=== PATIENT | female | born 1945 | race Caucasian/White ===

== ENCOUNTER → 2018-09-24 06:30 | Outpatient (CLI) | payer MEDICARE, SELFPAY ==
--- NOTE | 2018-09-24 | DI.MRI.S_ITS ---
PROCEDURE: MR LUMBAR SPINE WO CON INDICATIONS: Low back pain TECHNIQUE: Noncontrast sagittal T1 spin echo and T2 fast echo, sagittal STIR, axial T1 and T2 fast spin echo through the lumbar spine. In cases with scoliosis, additional coronal T2 fast spin echo may be performed. COMPARISON: None. FINDINGS: Image quality: Excellent. Alignment and Curvature: Straightening of the normal lumbar lordosis. Trace anterolisthesis of L3 on L4 Bone Marrow: Marrow is of normal overall signal. No acute vertebral body compression fractures. Spinal Cord: Conus medullaris terminates at the L1 level. Visualized cord demonstrates normal signal and size. Paraspinous Soft Tissues: No paravertebral masses. L1-L2: Normal appearance. L2-L3: Mild dorsal epidural lipomatosis. No significant canal stenosis. Partial effacement of both lateral recesses with bilaterally symmetric appearance. Mild bilateral foraminal narrowing L3-L4: No canal or lateral recess narrowing. Moderate left foraminal stenosis with nerve root compression. Mild right foraminal stenosis. L4-L5: Posterior annular fissure and broad-based posterior disc bulge with bilateral facet arthropathy. No definite canal stenosis. Partial effacement of both lateral recesses with bilaterally symmetric appearance. Severe left foraminal stenosis with nerve root compression. Minimal right foraminal narrowing L5-S1: No significant central canal narrowing. Partial effacement of both lateral recesses with bilaterally symmetric appearance. Moderate right foraminal stenosis with nerve root compression. Moderate to severe left foraminal stenosis or nerve root compression IMPRESSION: Multilevel lumbar spondylosis without high grade canal stenosis. Severe left L4-L5 foraminal narrowing. Moderate to severe left and moderate right L5-S1 foraminal stenoses. Dictated by: Jaxson Mora M.D. on 09/24/2018 at 10:31 Approved by: Jaxson Mora M.D. on 09/24/2018 at 10:39
== END ==
PROVIDERS: Visit Provider Physical Medicine & Rehabilitation
DX: M54.5 Low back pain (principal); M47.816 Spondylosis without myelopathy or radiculopathy, lumbar region; M48.061 Spinal stenosis, lumbar region without neurogenic claudication; M48.07 Spinal stenosis, lumbosacral region
CPT/HCPCS: 72148

== ENCOUNTER → 2019-09-15 19:20 | Outpatient (ROUT) | payer MEDICARE, SELFPAY ==
[2019-09-15 20:25] LABS: Add Manual Diff / Slide Review NO; Basophils Absolute Auto 100 /uL (0-100); Basophils Percent Auto 0.7 % (0-2); Eosinophils Absolute Auto 300 /uL (0-450); Eosinophils Percent Auto 2.9 % (2-4); Hemoglobin 13.2 g/dL (12.0-16.0); Lymphocytes Absolute Auto 2100 /uL (1100-4500); Lymphocytes Percent Auto 20.9 % (25-40); Mean Corpuscular Hemoglobin 28.3 PG (26-34); Mean Corpuscular Volume 85.6 fL (80-100); Monocytes Absolute Auto 500 /uL (0-900); Monocytes Percent Auto 5.4 % (3-14); Neutrophils Absolute Auto 7000 /uL (1500-7000); Neutrophils Percent Auto 70.1 % (50-75); Platelet Count 279 X10^3/uL (150-400); Red Blood Cell Count 4.67 X10^6/uL (4.0-5.2)
[2019-09-15 20:33] LABS: Reticulocyte Count, Percent 1.3 % (1.06-2.63)
[2019-09-15 20:36] LABS: HEMOLYSIS < 15 (0-50); Iron 63 ug/dL (37-170)
[2019-09-15 20:37] LABS: Alanine Aminotransferase 15 IU/L (<35); Albumin 4.2 g/dL (3.5-5.0); Albumin Globulin Ratio 1.6 (1.0-2.8); Alkaline Phosphatase 110 U/L (38-126); Aspartate Aminotransferase 23 IU/L (14-36); BUN Creatinine Ratio 30.1 (6-22); Bilirubin Total 0.4 mg/dL (0.2-1.3); Blood Urea Nitrogen 22 mg/dL (7-17); Carbon Dioxide 24 mmol/L (22-32); Chloride 104 mmol/L (98-107); Cholesterol 184 mg/dL (140-199); Estimated Glomerular Filt Rate > 60.0 mL/min (>60); Globulin 2.7 g/dL (1.7-4.1); Glucose 108 mg/dL (80-110); HDL Cholesterol 45 mg/dL (40-60); HEMOLYSIS < 15 (0-50); Potassium 4.5 mmol/L (3.4-5.1); Sodium 136 mmol/L (137-145); Total Protein 6.9 g/dL (6.3-8.2); Triglycerides 411 mg/dL (35-150)
[2019-09-15 20:49] LABS: Percent Iron Saturation 16 % (15-50); Total Iron Binding Capacity 389 ug/dL (265-497); Transferrin 316 mg/dL (206-381)
[2019-09-15 20:54] LABS: Vitamin D 25 Hydroxy (D3) 30.5 ng/mL (30.0-100.0)
[2019-09-15 21:43] LABS: Free T4, Direct Thyroxine 0.49 ng/dL (0.78-2.19)
[2019-09-16 08:15] LABS: Vitamin B12 > 1000 pg/mL (239-931)
== END ==
PROVIDERS: Visit Provider Physician Assistant
DX: I10 Essential (primary) hypertension (principal); E78.2 Mixed hyperlipidemia; E03.9 Hypothyroidism, unspecified; R41.9 Unspecified symptoms and signs involving cognitive functions and awareness; M19.90 Unspecified osteoarthritis, unspecified site; E53.8 Deficiency of other specified B group vitamins; D50.9 Iron deficiency anemia, unspecified
CPT/HCPCS: 80053; 80061; 82306; 82607; 83540; 83550; 84439; 84443; 85025; 85045

== ENCOUNTER → 2019-11-04 15:19 | Outpatient (ROUT) | payer MEDICARE, SELFPAY ==
[2019-11-04 16:24] LABS: TSH w/ Reflex to FT4 0.25 uIU/mL (0.47-4.68)
[2019-11-04 18:49] LABS: Free T4, Direct Thyroxine 1.91 ng/dL (0.78-2.19)
== END ==
PROVIDERS: Visit Provider Physician Assistant
DX: E03.9 Hypothyroidism, unspecified (principal)
CPT/HCPCS: 84439; 84443

== ENCOUNTER → 2020-01-27 14:50 | Outpatient (ROUT) | payer MEDICARE, SELFPAY | PROVIDERS: Visit Provider Physician Assistant | DX: E03.9 Hypothyroidism, unspecified (principal) | CPT/HCPCS: 84443 ==

== ENCOUNTER → 2020-06-15 13:00 | Outpatient (CLI) | payer MEDICARE, SELFPAY ==
--- NOTE | 2020-06-15 | DI.RAD.S_ITS ---
PROCEDURE: XR CHEST 2V INDICATIONS: Short of breath TECHNIQUE: 2 views of the chest were acquired. COMPARISON: None. FINDINGS: Surgical changes and devices: None. Lungs and pleura: Lungs are clear. No pleural effusions or pneumothorax. Mediastinum: Mediastinal contours are normal. Heart size is normal. Bones and chest wall: No suspicious bony abnormalities. Soft tissues appear unremarkable. IMPRESSION: Normal for age, source of current shortness of breath symptoms is not seen. Dictated by: Eldon Mendoza M.D. on 06/15/2020 at 14:51 Approved by: Eldon Mendoza M.D. on 06/15/2020 at 14:51
[2020-06-15 15:11] LABS: Add Manual Diff / Slide Review NO; Basophils Absolute Auto 100 /uL (0-100); Basophils Percent Auto 0.8 % (0-2); Eosinophils Absolute Auto 200 /uL (0-450); Eosinophils Percent Auto 2.1 % (2-4); Hematocrit 39.3 % (36-46); Hemoglobin 13.2 g/dL (12.0-16.0); Lymphocytes Absolute Auto 1700 /uL (1100-4500); Lymphocytes Percent Auto 20.2 % (25-40); Mean Corpuscular HGB Conc 33.6 % (30-36); Mean Corpuscular Hemoglobin 28.4 PG (26-34); Mean Corpuscular Volume 84.5 fL (80-100); Monocytes Absolute Auto 400 /uL (0-900); Monocytes Percent Auto 5.5 % (3-14); Neutrophils Absolute Auto 5800 /uL (1500-7000); Neutrophils Percent Auto 71.4 % (50-75); Platelet Count 282 X10^3/uL (150-400); Red Blood Cell Count 4.65 X10^6/uL (4.0-5.2); Red Cell Distribution Width 14.7 % (11.6-14.8); White Blood Cell Count 8.2 X10^3/uL (4.5-11.0)
[2020-06-15 15:27] LABS: HEMOLYSIS < 15 (0-50); Iron 47 ug/dL (37-170)
[2020-06-15 15:33] LABS: Alanine Aminotransferase 13 IU/L (<35); Albumin 4.2 g/dL (3.5-5.0); Albumin Globulin Ratio 1.4 (1.0-2.8); Alkaline Phosphatase 111 U/L (38-126); Aspartate Aminotransferase 22 IU/L (14-36); BUN Creatinine Ratio 25.3 (6-22); Bilirubin Total 0.2 mg/dL (0.2-1.3); Blood Urea Nitrogen 19 mg/dL (7-17); Calcium 10.6 mg/dL (8.4-10.2); Carbon Dioxide 29 mmol/L (22-32); Chloride 102 mmol/L (98-107); Cholesterol 153 mg/dL (140-199); Estimated Glomerular Filt Rate > 60.0 mL/min (>60); Glucose 118 mg/dL (80-110); HDL Cholesterol 45 mg/dL (40-60); HEMOLYSIS < 15 (0-50); LDL Cholesterol Calculated 56 mg/dL (<100); Potassium 3.4 mmol/L (3.4-5.1); Sodium 139 mmol/L (137-145); Total Protein 7.2 g/dL (6.3-8.2); Triglycerides 260 mg/dL (35-150)
[2020-06-15 15:42] LABS: Percent Iron Saturation 12 % (15-50); Total Iron Binding Capacity 407 ug/dL (265-497); Transferrin 331 mg/dL (206-381)
[2020-06-15 15:47] LABS: NT-proBNP (BNP-Adult 18+) 125 pg/mL (<125)
[2020-06-15 16:08] LABS: TSH w/ Reflex to FT4 4.53 uIU/mL (0.47-4.68)
[2020-06-15 16:13] LABS: Ferritin 9 ng/mL (11-264)
[2020-06-15 16:27] LABS: Vitamin B12 > 1000 pg/mL (239-931)
== END ==
PROVIDERS: Referring Provider Physician Assistant; Visit Provider Physician Assistant
DX: R06.02 Shortness of breath (principal); D50.9 Iron deficiency anemia, unspecified; E03.9 Hypothyroidism, unspecified; I10 Essential (primary) hypertension; E53.8 Deficiency of other specified B group vitamins; E78.2 Mixed hyperlipidemia
CPT/HCPCS: 36415; 71046; 80053; 80061; 82607; 82728; 83540; 83550; 83880; 84443; 85025

== ENCOUNTER → 2020-07-08 08:54 | Outpatient (CLI) | payer MEDICARE, SELFPAY ==
[2020-07-08 10:26] LABS: COVID19 -Nasal RAPID Negative (Negative)
== END ==
PROVIDERS: PCP Physician Assistant; Referring Provider Internal Medicine; Visit Provider Internal Medicine
DX: Z20.822 Contact with and (suspected) exposure to COVID-19 (principal)
CPT/HCPCS: 87635; C9803

== ENCOUNTER → 2020-07-08 10:48 | Outpatient (CLI) | payer MEDICARE, SELFPAY ==
--- NOTE | 2020-07-17 10:17 | P.PFT.S_ITS ---
Pulmonary Function Test Referral & Results Date Patient Seen: 07/08/20 Requesting provider: Ninoska Meyers Results: The spirometry demonstrates an FVC of 1.14 L which is 44% of predicted. The FEV1 was measured at 0.95 L which is 49% of predicted. The FEV1/FVC ratio was 83 which is 110% of predicted. Following the administration of bronchodilator there was a 16% improvement in FEV1 and a 67% improvement in FEF 25-75%. Lung volumes show an SVC of 3.13 L which is 121% of predicted. The diffusing capacity was measured at 15.98 which is 74% of predicted. No hemoglobin value was provided, so no correction for potential anemia could be made, if appropriate. The maximum voluntary ventilation was reduced Interpretation: This study demonstrates severe obstructive lung disease based on severe r eduction of FEV1 which is less than 1 L. There is evidence of benefit following bronchodilator based on improvement in FEV1 and more dramatically in small airway flow based on improvement in FEF 25-75%. Patient's lung volumes are normal There is minimal reduction if any in diffusing capacity Clinical correlation suggested
== END ==
PROVIDERS: PCP Physician Assistant; Referring Provider Physician Assistant; Visit Provider Physician Assistant
DX: R06.02 Shortness of breath (principal); J98.8 Other specified respiratory disorders; Z20.822 Contact with and (suspected) exposure to COVID-19; Z87.891 Personal history of nicotine dependence
CPT/HCPCS: 87635; 94060; 94726; 94729; C9803

== ENCOUNTER → 2020-07-10 09:46 | Outpatient (CLI) | payer MEDICARE, SELFPAY ==
--- NOTE | 2020-07-10 09:47 | DI.MG.S_ITS ---
BILATERAL DIGITAL SCREENING MAMMOGRAM 3D/2D WITH CAD: 07/10/2020 CLINICAL: Routine screening. Family history of breast cancer. Comparison is made to exams dated: 10/01/2016 mammogram, 07/25/2017 mammogram, and 10/24/2018 mammogram - outside facility. There are scattered fibroglandular elements in both breasts. Current study was also evaluated with a Computer Aided Detection (CAD) system. There are calcifications in both breasts. No significant masses, calcifications, or other findings are seen in either breast. There has been no significant interval change. IMPRESSION: BENIGN There is no mammographic evidence of malignancy. A 1 year screening mammogram is recommended. This exam was interpreted at Station ID: [id number]. NOTE: For mammograms, a report in lay terms will be sent to the patient. Approximately 15% of breast malignancies will not be visualized mammographically. In the management of a palpable breast mass, a negative mammogram must not discourage biopsy of a clinically suspicious lesion. Electronically Signed By: Kory Stockton M.D. at/:07/13/2020 07:54:20 letter sent: Normal Exam ACR BI-RADS Category 2: Benign Finding(s) 3342F
== END ==
PROVIDERS: PCP Physician Assistant; Referring Provider Physician Assistant; Visit Provider Physician Assistant
DX: Z12.31 Encounter for screening mammogram for malignant neoplasm of breast (principal)
CPT/HCPCS: 77063; 77067

== ENCOUNTER 2020-11-02 16:57 | Emergency (ER) | payer MEDICARE, SELFPAY ==
[2020-11-02 17:29] VITALS: BP 178/72; PULSE 65; RESP 18; TEMP 36.6; O2SAT 96; BMI 34.7
--- NOTE | 2020-11-02 17:39 | DI.RAD.S_ITS ---
PROCEDURE: XR HIP W PEL IF DONE LENNY MIN 4V INDICATIONS: fall TECHNIQUE: AP pelvis with lateral view(s) of the bilateral hip(s). COMPARISON: None. FINDINGS: Bones: No fractures or dislocations. Pelvic ring appears intact. No suspicious bony lesions. Degenerative changes noted involving the lower lumbar spine. Joint spaces are preserved. Normal bone mineralization. Soft tissues: The visualized bowel gas pattern is normal. No suspicious soft tissue calcifications. IMPRESSION: No evidence of fracture or dislocation. No radiopaque foreign body. Degenerative changes noted in the lower lumbar spine Approved by: Luis Valle M.D. on 11/02/2020 at 17:12
--- NOTE | 2020-11-02 17:41 | DI.RAD.S_ITS ---
PROCEDURE: XR SHOULDER LT MIN 2V INDICATIONS: fall TECHNIQUE: 2 views of the shoulder were acquired. COMPARISON: None. FINDINGS: Bones: No fractures or dislocations. No suspicious bony lesions. Visualized ribs appear intact. Degenerative changes are seen, with mild subacromial spurring. Relatively prominent osteophyte formation can be seen along the humeral head. There is at least moderate glenohumeral joint space narrowing seen. Soft tissues: No suspicious soft tissue calcifications. The visualized lung demonstrates an unremarkable appearance. IMPRESSION: Degenerative changes, without an acute abnormality identified on these plain films. Dictated by: Seferino Price M.D. on 11/02/2020 at 17:09 Approved by: Seferino Price M.D. on 11/02/2020 at 17:09
--- NOTE | 2020-11-02 17:41 | DI.RAD.S_ITS ---
PROCEDURE: XR KNEE LT 3V INDICATIONS: fall TECHNIQUE: 3 views of the knee were acquired. COMPARISON: None. FINDINGS: Bones: No fractures or dislocations. No suspicious bony lesions. Age-appropriate bony degenerative changes are seen. Soft tissues: No joint effusion. No suspicious soft tissue calcifications. IMPRESSION: No acute plain film abnormality is identified. Dictated by: Seferino Price M.D. on 11/02/2020 at 17:08 Approved by: Seferino Price M.D. on 11/02/2020 at 17:08
[2020-11-02 18:23] VITALS: BP 148/63; PULSE 66; RESP 19; O2SAT 97
--- NOTE | 2020-11-02 19:23 | DI.CT.S_ITS ---
PROCEDURE: CT LUMBAR SPINE WO CON INDICATIONS: Fall TECHNIQUE: Noncontrast 3 mm thick sections acquired from the T12 level to the sacrum. Sagittal and coronal reformats were constructed. For radiation dose reduction, the following was used: automated exposure control. COMPARISON: [facility], MR, MR LUMBAR SPINE WO CON, 09/24/2018, 6:56. FINDINGS: Image quality: Excellent. Bones: There is normal bony alignment. No acute vertebral body compression fractures. No suspicious lytic or blastic bony lesions. No pars defects. Degenerative disc disease in lumbar spine, severe at L4-L5 and L5-S1, moderate at L3-L4, mild at L1-L2 and L2-L3. There is facet arthropathy in lumbar spine, severe at L3-L4 bilaterally and L4-L5 on the left, and moderate at L 4-L5 on the right and L5-S1 bilaterally. Mild degenerative joint disease in SI joints bilaterally. Soft tissues: No retroperitoneal masses or hematomas. Visualized aorta is normal in caliber. Severe atherosclerosis. There is a masslike structure in the left side of the pelvis, partially visualized. IMPRESSION: 1. No lumbar spine fractures. 2. Degenerative disc and facet disease in lumbar spine as described. 3. A masslike structure in the left pelvis, partially visualized. Recommend nonurgent pelvic CT for follow-up evaluation. Dictated by: Edin Jimenez M.D. on 11/02/2020 at 20:03 Approved by: Edin Jimenez M.D. on 11/02/2020 at 20:07
--- NOTE | 2020-11-02 19:23 | DI.CT.S_ITS ---
PROCEDURE: CT THORACIC SPINE WO CON INDICATIONS: Fall TECHNIQUE: Noncontrast 3 mm thick sections acquired through the region of interest in the thoracic spine. Sagittal and coronal reformats were then constructed. For radiation dose reduction, the following was used: automated exposure control. COMPARISON: None. FINDINGS: Image quality: Excellent. Bones: There is normal overall bony alignment. No acute vertebral body compression fractures. No suspicious sclerotic or lytic bony lesions. Mild degenerative disc disease scattered in thoracic spine. There are multiple large anterior osteophytes at T6-T7, T7-T8, T8-T9 and T9-T10. Central spinal canal is of normal overall caliber. Soft tissues: No paravertebral masses or hematomas. Visualized posteromedial lungs appear clear. [id number] aortic arch calcification. Small hiatal hernia. IMPRESSION: 1. No fractures. 2. Degenerative changes in thoracic spine. Dictated by: Edin Jimenez M.D. on 11/02/2020 at 20:07 Approved by: Edin Jimenez M.D. on 11/02/2020 at 20:10
[2020-11-02] MEDS: KETOROLAC 30 MG/ML VIAL 15 MG IM (19:46)
--- NOTE | 2020-11-02 19:52 | ED_ITS ---
HPI - Fall <Anabel Samayoa PA-C - Last Filed: 11/02/20 20:34> General Chief Complaint: Fall Stated Complaint: GLF at home, right hip/ back/ shoulder Time Seen by Provider: 11/02/20 18:28 Source: patient Mode of arrival: Wheelchair History of Present Illness HPI Narrative: 75-year-old female with no significant past medical history presents to the ED status post a mechanical fall sustained earlier today. Patient describes it as a mechanical fall where she tripped over her feet, falling and landing on her bottom and striking her hips, left knee. Patient denies head strike, loss of consciousness. Patient is not on blood thinners. Patient was not lightheaded or dizzy or unwell leading up to the fall. Patient endorses pain in her mid and lower back, bilateral hips, left knee. Denies numbness, tingling, weakness. Was able to ambulate after the fall. Fall was not witnessed, however her was in the house to help her right after. Denies fever, chills, chest pain, shortness of breath, cough, nausea, vomiting, abdominal pain, lightheadedness, dizziness, syncope. Denies taking anything for the pain. Related Data Allergies Allergy/AdvReac Type Severity Reaction Status Date / Time No Known Drug Allergies Allergy Verified 11/02/20 17:36 Review of Systems <Anabel Samayoa PA-C - Last Filed: 11/02/20 20:34> Constitutional Constitutional: Denies chills, Denies fatigue, Denies fever(s), Denies frequent falls, Denies lethargy and Denies weakness Eyes Eyes: Denies change in vision, Denies eye discharge, Denies irritation and Denies loss of vision ENT Ears, Nose, Mouth, and Throat: Denies change in voice, Denies dizziness, Denies neck pain, Denies sore throat and Denies throat swelling Cardiovascular Cardiovascular: Denies chest pain, Denies irregular heart rhythm, Denies lightheadedness, Denies palpitations, Denies dyspnea, Denies dyspnea on exertion and Denies orthopnea Respiratory Respiratory: Denies cough, Denies dyspnea, Denies dyspnea on exertion and Denies wheezing Gastrointestinal Gastrointestinal: Denies abdominal pain, Denies change in bowel habits, Denies diarrhea, Denies nausea and Denies vomiting Musculoskeletal Musculoskeletal: Denies neck pain and Denies numbness Comments: Left knee pain. Mid and lower back pain. Bilateral hip pain. No numbness, tingling, weakness. Integumentary/Breasts Skin/Breast: Denies pruritus, Denies erythema, Denies rash and Denies wounds Neurologic Neurologic: Denies behavioral changes, Denies confusion, Denies dizziness, Denies frequent falls, Denies loss of vision, Denies numbness and Denies weakness Psychiatric Psychiatric: Denies anxiety, Denies behavioral changes, Denies confusion, Denies depression, Denies homicidal ideation and Denies suicidal ideation Endocrine Endocrine: Denies fatigue, Denies flushing and Denies palpitations Hematologic/Lymphatic Hematologic/Lymphatic: Denies easy bruising Allergic/Immunologic Allergic/Immunologic: Denies urticaria, Denies throat swelling and Denies wheezing Patient History <Anabel Samayoa PA-C - Last Filed: 11/02/20 20:34> Social History Smoking Status: Former smoker Smoking Status: Former smoker alcohol intake frequency: holidays/special occasions only Substance Use Type: does not use Exam <Anabel Samayoa PA-C - Last Filed: 11/02/20 20:34> Initial Vital Signs Initial Vital Signs: Vital Signs Temperature 97.9 F 11/02/20 17:29 Pulse Rate 65 11/02/20 17:29 Respiratory Rate 18 11/02/20 17:29 Blood Pressure 178/72 H 11/02/20 17:29 Pulse Oximetry 96 11/02/20 17:29 Const General: cooperative HENMT Head: normocephalic and atraumatic Ears: external ears normal and TM's normal bilaterally Nose: external nose normal and No nasal discharge Face and sinus: sinuses nontender, face symmetric, no sinus tenderness and No dry mucous membranes Mouth: oral mucosae normal and moist mucous membranes Teeth and gingiva: dentition normal Throat: tonsils normal and uvula midline Eyes General: appearance normal, both eyes and all related structures Eyelids: eyelids normal Conjunctivae: conjunctivae normal Sclera: sclerae normal Pupils: PERRL EOM: EOM intact bilaterally Neck Neck: normal visual inspection, trachea midline, No lymphadenopathy, No midline deformity and No JVD Lymphatic: No lymphedema Chest Chest: normal inspection of the chest Resp Effort & Inspection: normal respiratory effort, able to speak in complete sentences, no respiratory distress and no use of accessory muscles Auscultation: clear to auscultation bilaterally, no rales, no rhonchi and no wheezes Cardio Rate: regular rate Rhythm: regular rhythm Heart Sounds: no click, no gallops, no murmurs and no rubs Pulses: normal peripheral pulses GI Inspection: non-distended Palpation: soft, no hepatosplenomegaly, No guarding, No pulsatile mass and No tender Auscultation: normal bowel sounds Back/Spine/Pelvis Back: No CVA tenderness Cervical Spine: cervical ROM normal and No pain with cervical ROM Thoracic/Lumbar Spine: thoracic and lumbar spine normal to inspection, thoracic spinal tenderness and lumbar spinal tenderness Other: Midline tenderness to palpation of thoracic and lumbar regions. No cervical midline tenderness. Range of motion normal Skin General: no rashes or lesions noted, No jaundice and No petechiae Neuro General: patient alert, patient oriented x3, gait normal and no focal motor deficits Speech: speech normal Extrem General: full ROM, no clubbing, cyanosis or edema, no pedal edema and no calf tenderness Other: Left knee tender to palpation on the lateral aspect. Full range of motion. Strength and sensation intact. Neurovascularly intact. Psych Appearance: well kempt Mental Status: mental status grossly normal Attitude: cooperative Thought Content: normal and suicidality Judgment: judgment good <Roger Arnold DO - Last Filed: 11/03/20 07:13> Initial Vital Signs Initial Vital Signs: Vital Signs Temperature 97.9 F 11/02/20 17:29 Pulse Rate 65 11/02/20 17:29 Respiratory Rate 18 11/02/20 17:29 Blood Pressure 178/72 H 11/02/20 17:29 Pulse Oximetry 96 11/02/20 17:29 Course <Anabel Samayoa PA-C - Last Filed: 11/02/20 20:34> Course Course Narrative: X-rays, CT negative for fracture/dislocations. Patient's symptoms improved with Toradol. CT of the lumbar spine showed a masslike s tructure in the left pelvis for which a known urgent follow-up is suggested. Discussed findings with patient, patient will follow-up with PCP for further follow-up of the mass. Will discharge home with strict ED return precautions. Orders Ordered: Discontinued Medications Ketorolac Tromethamine (Ketorolac 30 Mg/Ml Vial) 15 mg IM NOW ONE Stop: 11/02/20 19:25 Last Admin: 11/02/20 19:46 Dose: 15 mg Documented by: RLHARSHILI Vital Signs Vital signs: Vital Signs - 8 hr 11/02/20 17:29 11/02/20 18:23 Temperature 97.9 F Pulse Rate 65 66 Respiratory Rate 18 19 Blood Pressure 178/72 H 148/63 H Pulse Oximetry 96 97 <Roger Arnold DO - Last Filed: 11/03/20 07:13> Orders Ordered: Discontinued Medications Ketorolac Tromethamine (Ketorolac 30 Mg/Ml Vial) 15 mg IM NOW ONE Stop: 11/02/20 19:25 Last Admin: 11/02/20 19:46 Dose: 15 mg Documented by: RLHARSHILI Vital Signs Vital signs: Vital Signs - 8 hr 11/02/20 17:29 11/02/20 18:23 Temperature 97.9 F Pulse Rate 65 66 Respiratory Rate 18 19 Blood Pressure 178/72 H 148/63 H Pulse Oximetry 96 97 MDM - Fall <Anabel Samayoa PA-C - Last Filed: 11/02/20 20:34> Imaging Data Hip, pelvis x-ray: Radiologist's Impression: PROCEDURE:? XR HIP W PEL IF DONE LENNY MIN 4V ? INDICATIONS:? fall ? TECHNIQUE:? AP pelvis with lateral view(s) of the bilateral hip(s).? ? COMPARISON:? None. ? FINDINGS:? ? Bones:? No fractures or dislocations.? Pelvic ring appears intact.? No suspiciou s bony lesions.? Degenerative changes noted involving the lower lumbar spine.? Joint spaces are preserved.? Normal bone mineralization. ? Soft tissues:? The visualized bowel gas pattern is normal.? No suspicious soft tissue calcifications.? ? ? IMPRESSION:? ? No evidence of fracture or dislocation.? No radiopaque foreign body. Degenerative changes noted in the lower lumbar spine ? Approved by: Luis Valle M.D. on 11/02/2020 at 17:12? Extremity x-ray #1: Radiologist's Impression: PROCEDURE:? XR KNEE LT 3V ? INDICATIONS:? fall ? TECHNIQUE:? 3 views of the knee were acquired.? ? COMPARISON:? None. ? FINDINGS:? ? Bones:? No fractures or dislocations.? No suspicious bony lesions.? Age- appropriate bony degenerative changes are seen.? ? Soft tissues:? No joint effusion.? No suspicious soft tissue calcifications.? ? ? IMPRESSION:? No acute plain film abnormality is identified. ? ? Dictated by: Seferino Price M.D. on 11/02/2020 at 17:08 ? ? Approved by: Seferino Price M.D. on 11/02/2020 at 17:08 ? Shoulder x-ray: Radiologist's Impression: PROCEDURE:? XR SHOULDER LT MIN 2V ? INDICATIONS:? fall ? TECHNIQUE:? 2 views of the shoulder were acquired.? ? COMPARISON:? None. ? FINDINGS:? ? Bones:? No fractures or dislocations.? No suspicious bony lesions.? Visualized ribs appear intact.? Degenerative changes are seen, with mild subacromial spurring.? Relatively prominent osteophyte formation can be seen along the humeral head.? There is at least moderate glenohumeral joint space narrowing seen. ? Soft tissues:? No suspicious soft tissue calcifications.? The visualized lung demonstrates an unremarkable appearance. ? ? IMPRESSION:? Degenerative changes, without an acute abnormality identified on these plain films. ? ? Dictated by: Seferino Price M.D. on 11/02/2020 at 17:09 ? ? Approved by: Seferino Price M.D. on 11/02/2020 at 17:09 ? CT lumbar spine: Radiologist's Impression: PROCEDURE:? CT LUMBAR SPINE WO CON ? INDICATIONS:? Fall ? TECHNIQUE:? Noncontrast 3 mm thick sections acquired from the T12 level to the sacrum.? Sagittal and coronal reformats were constructed.? For radiation dose reduction, the following was used:? automated exposure control.? ? COMPARISON:? [facility], MR, MR LUMBAR SPINE WO CON, 09/24/2018, 6:56. ? FINDINGS:? Image quality:? Excellent.? ? Bones:? There is normal bony alignment.? No acute vertebral body compression fractures.? No suspicious lytic or blastic bony lesions.? No pars defects.? Degenerative disc disease in lumbar spine, severe at L4-L5 and L5-S1, moderate at L3-L4, mild at L1-L2 and L2-L3.? There is facet arthropathy in lumbar spine, severe at L3-L4 bilaterally and L4- L5 on the left, and moderate at L 4-L5 on the right and L5-S1 bilaterally.? Mild degenerative joint disease in SI joints bilaterally. ? Soft tissues:? No retroperitoneal masses or hematomas.? Visualized aorta is normal in caliber.? Severe atherosclerosis.? There is a masslike structure in the left side of the pelvis, partially visualized. ? ? IMPRESSION:? ? 1. No lumbar spine fractures. 2. Degenerative disc and facet disease in lumbar spine as described.? 3. A masslike structure in the left pelvis, partially visualized.? Recommend nonurgent pelvic CT for follow-up evaluation.? ? Dictated by: Edin Jimenez M.D. on 11/02/2020 at 20:03 ? ? Approved by: Edin Jimenez M.D. on 11/02/2020 at 20:07 ? CT thoracic spine: Radiologist's Impression: PROCEDURE:? CT THORACIC SPINE WO CON ? INDICATIONS:? Fall ? TECHNIQUE:? Noncontrast 3 mm thick sections acquired through the region of interest in the thoracic spine.? Sagittal and coronal reformats were then constructed.? For radiation dose reduction, the following was used:? automated exposure control.? ? COMPARISON:? None. ? FINDINGS:? Image quality:? Excellent.? ? Bones:? There is normal overall bony alignment.? No acute vertebral body compression fractures.? No suspicious sclerotic or lytic bony lesions.? Mild degenerative disc disease scattered in thoracic spine.? There are multiple large anterior osteophytes at T6-T7, T7-T8, T8-T9 and T9-T10.? Central spinal canal is of normal overall caliber.? ? Soft tissues:? No paravertebral masses or hematomas.? Visualized posteromedial lungs appear clear.? [id number] aortic arch calcification.? Small hiatal hernia. ? IMPRESSION:? ? 1. No fractures. 2. Degenerative changes in thoracic spine.? ? ? Dictated by: Edin Jimenez M.D. on 11/02/2020 at 20:07 ? ? Approved by: Edin Jimenez M.D. on 11/02/2020 at 20:10 ? MDM Narrative Medical decision making narrative: 75-year-old female with no significant past medical history presents to the ED status post a mechanical fall sustained earlier today. Concern for fractures/dislocations. Given that patient describes it as a mechanical fall, not concerning for cardiac causes. CT head not indicated due to no head strike or loss of consciousness or blood thinner use. Will reassess. Discharge Plan Departure Patient Disposition: Home Clinical Impression: Fall Qualifiers: Encounter type: initial encounter Qualified Code(s): W19.XXXA - Unspecified fall, initial encounter Instructions: How to Prevent Falls Activity Restrictions/Additional Instructions: You were evaluated in the ED for a fall that she incurred earlier today. Your x-rays and CTs did not show evidence of fractures or dislocations. Your lumbar spine CT showed a possible mass that needs to be further evaluated. Follow-up with your primary care physician for further evaluation of the mass. You may take Tylenol or ibuprofen for pain. Return to the ED if you experience worsening of pain, numbness, tingling, weakness. Referrals: Ninoska Meyers PA-C [Primary Care Provider] - <Roger Arnold, - Last Filed: 11/03/20 07:13> Cosign ED Attending Cosignature Attestation: Dr Arnold Co-Sign Statement: I was available for consultation during this patient's emergency department visit. This chart is signed by myself for administrative purposes only. I did not have direct contact with this patient during this visit. They were seen independently by the APC.
[2020-11-02 20:37] VITALS: BP 186/77; PULSE 57; RESP 18; O2SAT 95
== END 2020-11-02 20:46 | disposition home or self-care (01) ==
PROVIDERS: Emergency Provider Student in an Organized Health Care Education/Training Program; PCP Physician Assistant
DX: M54.5 Low back pain (principal); M25.552 Pain in left hip; M25.551 Pain in right hip; M25.562 Pain in left knee; W19.XXXA Unspecified fall, initial encounter
CPT/HCPCS: 72128; 72131; 73030; 73522; 73562; 96372; 99284; J1885

== ENCOUNTER → 2020-11-10 10:50 | Outpatient (CLI) | payer MEDICARE, SELFPAY ==
[2020-11-10 11:18] LABS: Blood Urea Nitrogen 16 mg/dL (7-17); Calcium 10.1 mg/dL (8.4-10.2); Carbon Dioxide 30 mmol/L (22-32); Chloride 101 mmol/L (98-107); Estimated Glomerular Filt Rate > 60.0 mL/min (>60); Glucose 101 mg/dL (80-110); HEMOLYSIS 24 (0-50); Potassium 4.7 mmol/L (3.4-5.1); Sodium 137 mmol/L (137-145)
--- NOTE | 2020-11-10 11:42 | DI.CT.S_ITS ---
PROCEDURE: CT ABDOMEN PELVIS W CON INDICATIONS: PELVIC MASS TECHNIQUE: After the administration of oral and IV contrast, axial sections were acquired from the lung bases to the pubic symphysis. Coronal and sagittal reformats were performed. For radiation dose reduction, the following was used: automated exposure control, adjustment of mA and/or kV according to patient size. COMPARISON: [facility], CT, CT LUMBAR SPINE WO CON, 11/02/2020, 19:33. FINDINGS: Image quality: Excellent. Lung bases: Unremarkable. Heart: No significant findings. ABDOMEN: Liver: Unremarkable. Gallbladder: Cholecystectomy Biliary ducts: Unremarkable. Pancreas: Unremarkable. Spleen: Unremarkable. Adrenal Glands: Unremarkable. Kidneys and Ureters: Unremarkable. Stomach and Bowel: Stomach, small bowel loops, and colon are unremarkable. Multiple diverticula arise from the sigmoid colon without evidence of diverticulitis. Moderate fecal debris throughout the colon. Peritoneum: No abnormal intraperitoneal fluid. No free air. Ventral Wall: No hernia. Abdominal Nodes: No retroperitoneal or mesenteric adenopathy by size criteria. Vessels: Atherosclerotic calcification in the abdominal aorta noted without evidence of aneurysm. PELVIS: Pelvic Organs: Unremarkable. Bladder: Unremarkable. Pelvic Nodes: No enlarged lymph nodes. Miscellaneous: No inguinal hernias are seen. Bones: Multilevel degenerative disc disease and arthropathy noted in the lower lumbar spine. No evidence of fracture or malalignment. IMPRESSION: 1. No evidence of pelvic mass lesion. Mass like structure in the left hemipelvis noted on the prior lumbar spine CT corresponds with the normal urinary bladder on the current study. 2. Incidental colonic diverticulosis without evidence of diverticulitis. Approved by: Luis Valle M.D. on 11/10/2020 at 12:10
== END ==
PROVIDERS: PCP Physician Assistant; Referring Provider Physician Assistant; Visit Provider Physician Assistant
DX: R19.00 Intra-abdominal and pelvic swelling, mass and lump, unspecified site (principal); K57.30 Diverticulosis of large intestine without perforation or abscess without bleeding
CPT/HCPCS: 36415; 74177; 80048

== ENCOUNTER 2021-01-28 08:03 | Emergency (ER) | payer MEDICARE, SELFPAY ==
[2021-01-28] VITALS (16 sets, daily range): BP systolic 145–192; BP diastolic 66–99; PULSE 69–78; RESP 15–33; TEMP 37; O2SAT 94–97; BMI 34.7
--- NOTE | 2021-01-28 08:17 | ED.NAVMDI ---
HPI - Nausea/Vomiting/Diarrhea General Chief complaint: Nausea/Vomiting/Diarrhea Stated complaint: throwing up since last night, UTI+Diverticulitis Time Seen by Provider: 01/28/21 08:11 History of Present Illness HPI Narrative: 75-year-old female former smoker presents with subjective fever, chills, nausea, vomiting and now dry use as well as loose stools for the past few days. She was seen and evaluated at an outside clinic yesterday and diagnosed both with diverticulitis, no imaging was performed, and a UTI. She was given Augmentin which she does not seem to tolerate and has been vomiting significantly. She is not dizzy, weak and lightheaded. She states the symptoms are similar to prior episodes of diverticulitis which had required surgical intervention and she had a portion of her colon removed previously. She has lower abdominal pain that is worse with motion and improves with rest. Wraps around to her back. Related Data Previous Rx's Medication Instructions Recorded ciprofloxacin HCl 500 mg tablet 500 mg PO BID #20 tab 01/28/21 metronidazole 500 mg tablet 500 mg PO Q8H #30 tab 01/28/21 ondansetron 4 mg disintegrating 4 mg PO TID-QID PRN #10 tab 01/28/21 tablet Allergies Allergy/AdvReac Type Severity Reaction Status Date / Time No Known Drug Allergies Allergy Verified 01/28/21 08:52 Patient History Social History Smoking Status: Former smoker Smoking Status: Former smoker alcohol intake frequency: holidays/special occasions only Substance Use Type: does not use Exam Narrative Exam Narrative: GENERAL: [75 year old patient appears stated age. Well-developed patient, in mild distress. HEAD: Atraumatic. Normocephalic. EYES: Pupils equal round and reactive. Extraocular motions intact. No scleral icterus. No injection or drainage. ENT: Nose without bleeding, purulent drainage. Throat without erythema, tonsillar hypertrophy or exudate. Airway patent. NECK: Trachea midline. Non tender CARDIOVASCULAR: Regular rate and rhythm without murmurs, gallops, or rubs. RESPIRATORY: Clear to auscultation. Breath sounds equal bilaterally. No wheezes, rales, or rhonchi. GASTROINTESTINAL: Abdomen soft, generalized lower abdominal pain, nondistended. EXTREMITIES: No edema or joint tenderness. BACK: Nontender without deformity or crepitance. No flank tenderness. NEURO: AOx3. SKIN: No rash or erythema of visible areas Initial Vital Signs Initial Vital Signs: Vital Signs Pulse Rate 74 01/28/21 08:21 Respiratory Rate 20 01/28/21 08:21 Pulse Oximetry 95 01/28/21 08:21 Course Orders Ordered: Discontinued Medications Sodium Chloride (Normal Saline 0.9%) 1,000 mls @ 1,000 mls/hr IV BOLUS ONE Stop: 01/28/21 09:26 Last Infusion: 01/28/21 11:17 Dose: 0 mls/hr Documented by: Admin: 01/28/21 09:16 Dose: 1,000 mls/hr Documented by: ANGELLA Levofloxacin (Levaquin) 500 mg in 100 mls @ 100 mls/hr IV NOW ONE Stop: 01/28/21 10:05 Last Infusion: 01/28/21 12:14 Dose: 0 mls/hr Documented by: Admin: 01/28/21 11:05 Dose: 100 mls/hr Documented by: ANGELLA Metronidazole (Flagyl) 500 mg in 100 mls @ 100 mls/hr IV NOW ONE Stop: 01/28/21 10:05 Last Infusion: 01/28/21 11:00 Dose: 0 mls/hr Documented by: Admin: 01/28/21 09:24 Dose: 100 mls/hr Documented by: ANEGLLA Ondansetron HCl (Ondansetron 4 Mg/2 Ml Inj) 4 mg IV NOW ONE Stop: 01/28/21 08:28 Last Admin: 01/28/21 09:16 Dose: 4 mg Documented by: ANGELLA MDM - Nausea/Vomiting/Diarrhea Lab Data Result diagrams: 01/28/21 08:35 01/28/21 08:35 Labs: Lab Results 01/28/21 01/28/21 01/28/21 Range/Units 08:35 08:35 08:40 WBC 14.9 H (4.5-11.0) X10^3/uL RBC 4.37 (4.0-5.2) X10^6/uL Hgb 11.9 L (12.0-16.0) g/dL Hct 35.3 L (36-46) % MCV 80.9 (80-100) fL MCH 27.1 (26-34) PG MCHC 33.6 (30-36) % RDW 15.4 H (11.6-14.8) % Plt Count 288 (150-400) X10^3/uL Neut % (Auto) 96.1 H (50-75) % Lymph % (Auto) 1.6 L (25-40) % [place] % (Auto) 2.1 L (3-14) % Eos % (Auto) 0.1 L (2-4) % Baso % (Auto) 0.1 (0-2) % Neut # (Auto) 42323 H (8077-4755) /uL Lymph # (Auto) 200 L (7292-3966) /uL [place] # (Auto) 300 (0-900) /uL Eos # (Auto) 0 (0-450) /uL Baso # (Auto) 0 (0-100) /uL Sodium 140 (137-145) mmol/L Potassium 4.5 (3.4-5.1) mmol/L Chloride 103 (98-107) mmol/L Carbon Dioxide 26 (22-32) mmol/L BUN 22 H (7-17) mg/dL Creatinine 0.69 (0.52-1.04) mg/dL Estimated GFR > 60.0 (>60) mL/min BUN/Creatinine Ratio 31.9 H (6-22) Glucose 173 H (80-110) mg/dL Calcium 9.8 (8.4-10.2) mg/dL Total Bilirubin 0.6 (0.2-1.3) mg/dL AST 31 (14-36) IU/L ALT 20 (<35) IU/L Alkaline Phosphatase 92 (38-126) U/L Total Protein 7.1 (6.3-8.2) g/dL Albumin 4.3 (3.5-5.0) g/dL Globulin 2.8 (1.7-4.1) g/dL Albumin/Globulin Ratio 1.5 (1.0-2.8) Urine Color Urine Appearance Urine pH (4.5-8.0) Ur Specific [place] (1.000-1.035) Urine Protein (Negative) Urine Glucose (UA) (Negative) g/dL Urine Ketones (NEGATIVE) Urine Occult Blood (Negative) Urine Nitrate (Negative) Urine Bilirubin (NEGATIVE) Urine Urobilinogen (0.2) E.U./dL Ur Leukocyte Esterase (NEGATIVE) Urine RBC (0-5/HPF) Urine WBC (0-5/HPF) Ur Squamous Epith Cells (0-5/HPF) Urine Bacteria (None) Ur Culture Indicated? Micro UA Comment SARS-CoV-2 (PCR) Negative (Negative) 01/28/21 Range/Units 11:17 WBC (4.5-11.0) X10^3/uL RBC (4.0-5.2) X10^6/uL Hgb (12.0-16.0) g/dL Hct (36-46) % MCV (80-100) fL MCH (26-34) PG MCHC (30-36) % RDW (11.6-14.8) % Plt Count (150-400) X10^3/uL Neut % (Auto) (50-75) % Lymph % (Auto) (25-40) % [place] % (Auto) (3-14) % Eos % (Auto) (2-4) % Baso % (Auto) (0-2) % Neut # (Auto) (0570-8973) /uL Lymph # (Auto) (3628-1948) /uL [place] # (Auto) (0-900) /uL Eos # (Auto) (0-450) /uL Baso # (Auto) (0-100) /uL Sodium (137-145) mmol/L Potassium (3.4-5.1) mmol/L Chloride (98-107) mmol/L Carbon Dioxide (22-32) mmol/L BUN (7-17) mg/dL Creatinine (0.52-1.04) mg/dL Estimated GFR (>60) mL/min BUN/Creatinine Ratio (6-22) Glucose (80-110) mg/dL Calcium (8.4-10.2) mg/dL Total Bilirubin (0.2-1.3) mg/dL AST (14-36) IU/L ALT (<35) IU/L Alkaline Phosphatase (38-126) U/L Total Protein (6.3-8.2) g/dL Albumin (3.5-5.0) g/dL Globulin (1.7-4.1) g/dL Albumin/Globulin Ratio (1.0-2.8) Urine Color Yellow Urine Appearance Clear Urine pH 6.5 (4.5-8.0) Ur Specific [place] 1.010 (1.000-1.035) Urine Protein 1+ H (Negative) Urine Glucose (UA) Negative (Negative) g/dL Urine Ketones Negative (NEGATIVE) Urine Occult Blood Trace-lysed (Negative) Urine Nitrate Negative (Negative) Urine Bilirubin Negative (NEGATIVE) Urine Urobilinogen 0.2 (0.2) E.U./dL Ur Leukocyte Esterase Negative (NEGATIVE) Urine RBC None seen (0-5/HPF) Urine WBC 0-1/hpf (0-5/HPF) Ur Squamous Epith Cells 1-5 /hpf (0-5/HPF) Urine Bacteria Occasional (0-1) (None) Ur Culture Indicated? Cult not indicated Micro UA Comment SARS-CoV-2 (PCR) (Negative) Discharge Plan Departure Patient Disposition: Home Clinical Impression: Enteritis, Vomiting Instructions: DI for Nausea -- Adult, DI for Vomiting -- Adult Activity Restrictions/Additional Instructions: *You have been diagnosed with [abdominal enteritis and urinary tract infection. Your labs and imaging are very reassuring. There is no evidence of diverticulitis, though CT does show findings consistent with enteritis *What to do: *Please stop the Augmentin. A new prescription has been sent to the pharmacy for you. Otherwise please continue to take your regular medications as directed. [ x] New medication prescriptions sent to your pharmacy: [[facility] in [place] ] [ ] New medication written as a paper prescription [ ] No new medications given *Please follow up with your primary care provider in 2-3 days, call for an appointment. Let them know you were seen in the Emergency Department and that we ask that you be seen in follow up. We will electronically transmit a record of today's note if your PCP is in our system *If you do not have a primary care provider please contact the [facility] Resource line at [phone]. They will ask some questions about your medical history and help get you set up with a doctor in the community. *Return to Emergency Department if you should have any new, worsening or concerning symptoms, such as [fever greater than 101 F, shaking chills, worsening pain, persistent vomiting or other bothersome symptoms] Prescriptions: New ciprofloxacin HCl 500 mg tablet 500 mg PO BID Qty: 20 0RF metronidazole 500 mg tablet 500 mg PO Q8H Qty: 30 0RF ondansetron 4 mg tablet,disintegrating 4 mg PO TID-QID PRN (Reason: nausea and vomiting) Qty: 10 0RF Referrals: Ninoska Meyers PA-C [Primary Care Provider] -
--- NOTE | 2021-01-28 08:31 | DI.CT.S_ITS ---
PROCEDURE: CT ABDOMEN PELVIS W CON INDICATIONS: severe lower abdominal pain, N/V, fever TECHNIQUE: After the administration of oral and IV contrast, axial sections were acquired from the lung bases to the pubic symphysis. Coronal and sagittal reformats were performed. For radiation dose reduction, the following was used: automated exposure control, adjustment of mA and/or kV according to patient size. COMPARISON: [facility], CT, CT ABDOMEN PELVIS W CON, 11/10/2020, 11:51. FINDINGS: Image quality: Excellent. Lung bases: Unremarkable. Heart: No significant findings. ABDOMEN: Liver: Unremarkable. Gallbladder: Surgically absent. Biliary ducts: Unremarkable. Pancreas: Unremarkable. Spleen: Unremarkable. Adrenal Glands: No nodule. Kidneys and Ureters: No hydronephrosis. Stomach and Bowel: Stomach is not significantly distended. The proximal jejunum is mildly dilated. There is a gradual transition to normal caliber. No transition point is demonstrated. Diverticulosis. No diverticulitis. Probable adhesion of the transverse colon to the ventral abdominal wall. The appendix is not seen. Peritoneum: No abnormal intraperitoneal fluid. No free air. Ventral Wall: No hernia. Abdominal Nodes: No retroperitoneal or mesenteric adenopathy by size criteria. Vessels: Aorta and inferior vena cava are normal in size. Circumferential calcified atherosclerotic plaque. PELVIS: Pelvic Organs: Uterus is absent. Pelvic floor laxity. No free fluid. Bladder: Mostly decompressed. Pelvic Nodes: No enlarged lymph nodes. Miscellaneous: No inguinal hernias are seen. Bones: No compression fracture. Nyuz-co-[id number] degenerative change in the lumbar spine. IMPRESSION: 1. Mildly dilated proximal jejunum. No transition point. This could be seen in an enteritis. 2. Diverticulosis. No diverticulitis. No free fluid. Dictated by: Robbie Lua M.D. on 01/28/2021 at 9:42 Approved by: Robbie Lua M.D. on 01/28/2021 at 9:49
[2021-01-28 08:51] LABS: Add Manual Diff / Slide Review NO; Basophils Absolute Auto 0 /uL (0-100); Basophils Percent Auto 0.1 % (0-2); Eosinophils Absolute Auto 0 /uL (0-450); Eosinophils Percent Auto 0.1 % (2-4); Hematocrit 35.3 % (36-46); Hemoglobin 11.9 g/dL (12.0-16.0); Lymphocytes Absolute Auto 200 /uL (1100-4500); Lymphocytes Percent Auto 1.6 % (25-40); Mean Corpuscular HGB Conc 33.6 % (30-36); Mean Corpuscular Hemoglobin 27.1 PG (26-34); Mean Corpuscular Volume 80.9 fL (80-100); Monocytes Absolute Auto 300 /uL (0-900); Monocytes Percent Auto 2.1 % (3-14); Neutrophils Absolute Auto 14300 /uL (1500-7000); Neutrophils Percent Auto 96.1 % (50-75); Platelet Count 288 X10^3/uL (150-400); Red Blood Cell Count 4.37 X10^6/uL (4.0-5.2); Red Cell Distribution Width 15.4 % (11.6-14.8); White Blood Cell Count 14.9 X10^3/uL (4.5-11.0)
[2021-01-28 09:15] LABS: Alanine Aminotransferase 20 IU/L (<35); Albumin 4.3 g/dL (3.5-5.0); Albumin Globulin Ratio 1.5 (1.0-2.8); Alkaline Phosphatase 92 U/L (38-126); Aspartate Aminotransferase 31 IU/L (14-36); BUN Creatinine Ratio 31.9 (6-22); Bilirubin Total 0.6 mg/dL (0.2-1.3); Blood Urea Nitrogen 22 mg/dL (7-17); Calcium 9.8 mg/dL (8.4-10.2); Carbon Dioxide 26 mmol/L (22-32); Chloride 103 mmol/L (98-107); Estimated Glomerular Filt Rate > 60.0 mL/min (>60); Globulin 2.8 g/dL (1.7-4.1); Glucose 173 mg/dL (80-110); HEMOLYSIS < 15 (0-50); Potassium 4.5 mmol/L (3.4-5.1); Sodium 140 mmol/L (137-145); Total Protein 7.1 g/dL (6.3-8.2)
[2021-01-28] MEDS: SODIUM CHLORIDE 0.9% 1,000 ML 1000 ML IV (09:16)
[2021-01-28] MEDS: ONDANSETRON 4 MG/2 ML INJ IV (09:16)
[2021-01-28] MEDS: metroNIDAZOLE 500 MG/100 ML PIGGYBACK 100 MG IV (09:24)
[2021-01-28 10:35] LABS: COVID19 - ADMIT (NP swab/PCR) Negative (Negative)
[2021-01-28] MEDS: levoFLOXacin 500 MG/100 ML PIGGYBACK 100 MG IV (11:05)
[2021-01-28 12:05] LABS: Appearance Urine UA CLEAR; Bilirubin Urine UA NEGATIVE (NEGATIVE); Color Urine UA YELLOW; Glucose Urine UA NEGATIVE (Negative); Ketones Urine UA NEGATIVE (NEGATIVE); Leukocyte Esterase Urine UA NEGATIVE (NEGATIVE); Nitrite Urine UA NEGATIVE (Negative); Occult Blood Urine UA TRACE-LYSED (Negative); Protein Urine UA 1+ (Negative); Urobilinogen Urine UA 0.2 E.U./dL (0.2)
[2021-01-28 12:06] LABS: pH Urine UA 6.5 (4.5-8.0)
[2021-01-28 12:12] LABS: Bacteria Urine Occasional (0-1); Culture Indicated Urine Cult Not Indicated; RBC Urine None Seen (0-5/HPF); Squamous Epithelial Cell Urine 1-5 /HPF (0-5/HPF); WBC Urine 0-1/HPF (0-5/HPF)
== END 2021-01-28 12:33 | disposition home or self-care (01) ==
PROVIDERS: Emergency Provider Emergency Medicine; PCP Physician Assistant
DX: K52.9 Noninfective gastroenteritis and colitis, unspecified (principal); Z87.891 Personal history of nicotine dependence; Z20.822 Contact with and (suspected) exposure to COVID-19
CPT/HCPCS: 36415; 74177; 80053; 81001; 85025; 87040; 87635; 96365; 96367; 96375; 99284; C9803; J1956; J2405

== ENCOUNTER → 2021-08-09 11:16 | Outpatient (CLI) | payer MEDICARE, SELFPAY ==
--- NOTE | 2021-08-09 11:18 | DI.MG.S_ITS ---
BILATERAL DIGITAL SCREENING MAMMOGRAM 3D/2D WITH CAD: 08/09/2021 CLINICAL: Routine screening. Family history of breast cancer. Comparison is made to exams dated: 07/10/2020 mammogram - [facility], 10/24/2018 mammogram, and 07/25/2017 mammogram - outside facility. The tissue of both breasts is heterogeneously dense. This may lower the sensitivity of mammography. Current study was also evaluated with a Computer Aided Detection (CAD) system. There are benign calcifications in both breasts. No significant masses, calcifications, or other findings are seen in either breast. There has been no significant interval change. IMPRESSION: BENIGN There is no mammographic evidence of malignancy. A 1 year screening mammogram is recommended. Based on the Tyrer Cuzick model (a risk assessment model) the patient's lifetime risk is 8.9% and her 10 year risk is 8.9%. According to the ACR, ACS, and NCCN guidelines, an annual breast MRI exam along with mammogram is recommended if the patient's lifetime risk is 20% or greater. This exam was interpreted at Station ID: [id number]. NOTE: For mammograms, a report in lay terms will be sent to the patient. Approximately 15% of breast malignancies will not be visualized mammographically. In the management of a palpable breast mass, a negative mammogram must not discourage biopsy of a clinically suspicious lesion. Electronically Signed By: Becky falcon/xavier:08/09/2021 14:32:33 letter sent: Normal Exam ACR BI-RADS Category 2: Benign Finding(s) 3342F
== END ==
PROVIDERS: PCP Physician Assistant; Referring Provider Physician Assistant; Visit Provider Physician Assistant
DX: Z12.31 Encounter for screening mammogram for malignant neoplasm of breast (principal); Z80.3 Family history of malignant neoplasm of breast
CPT/HCPCS: 77063; 77067

== ENCOUNTER → 2022-02-23 10:34 | Outpatient (CLI) | payer MEDICARE, SELFPAY ==
--- NOTE | 2022-02-23 10:37 | DI.RAD.S_ITS ---
PROCEDURE: XR LUMBAR SPINE 2-3V INDICATIONS: CHRONIC BILATERAL LOW BACK PAIN TECHNIQUE: 3 views of the lumbar spine were acquired. COMPARISON: None. FINDINGS: Bones: 5 [id number] vertebrae are present. There is normal bony alignment. No vertebral body compression fractures. No suspicious bony lesions. Disc space narrowing and marginal osteophytes noted in the lower lumbar spine with hypertrophic facet joints present. Soft tissues: Overlying bowel gas pattern is normal. No suspicious soft tissue calcifications. Atherosclerotic calcification in the abdominal aorta noted without evidence of aneurysm. IMPRESSION: These and arthropathy without fracture or malaligned Approved by: Luis Valle M.D. on 02/23/2022 at 14:28
== END ==
PROVIDERS: PCP Physician Assistant; Referring Provider Physician Assistant; Visit Provider Physician Assistant
DX: M47.816 Spondylosis without myelopathy or radiculopathy, lumbar region (principal); I70.0 Atherosclerosis of aorta; M54.50 Low back pain, unspecified; G89.29 Other chronic pain
CPT/HCPCS: 72100

== ENCOUNTER → 2022-03-09 09:22 | Outpatient (CLI) | payer MEDICARE, SELFPAY ==
--- NOTE | 2022-03-09 09:23 | DI.RAD.S_ITS ---
PROCEDURE: XR HIP W PEL IF DONE LENNY MIN 4V INDICATIONS: BILATERAL HIP PAIN TECHNIQUE: AP pelvis with lateral view(s) of the both hip(s). COMPARISON: [facility], CT, CT ABDOMEN PELVIS W CON, 01/28/2021, 9:14. [facility], CR, XR HIP W PEL IF DONE LENNY 3TO4V, 11/02/2020, 17:44. FINDINGS: Bones: No fractures or dislocations. Mild bilateral hip DJD. Mild joint space narrowing and acetabular roof sclerosis. Pelvic ring appears intact. No suspicious bony lesions. Soft tissues: The visualized bowel gas pattern is normal. No suspicious soft tissue calcifications. IMPRESSION: Mild bilateral hip DJD. Dictated by: Robbie Lua M.D. on 03/09/2022 at 12:21 Approved by: Robbie Lua M.D. on 03/09/2022 at 12:23
== END ==
PROVIDERS: PCP Physician Assistant; Referring Provider Physician Assistant; Visit Provider Physician Assistant
DX: M16.0 Bilateral primary osteoarthritis of hip (principal); M25.551 Pain in right hip; M25.552 Pain in left hip
CPT/HCPCS: 73522

== ENCOUNTER → 2022-08-17 12:30 | Outpatient (CLI) | payer MEDICARE, SELFPAY ==
--- NOTE | 2022-08-17 | DI.MG.S_ITS ---
BILATERAL DIGITAL SCREENING MAMMOGRAM 3D/2D WITH CAD: 08/17/2022 CLINICAL: Routine screening. Family history of breast cancer. Comparison is made to exams dated: 08/09/2021 mammogram, 07/10/2020 mammogram - [facility], and 10/24/2018 mammogram - outside facility. Both breasts are heterogeneously dense, which may obscure small masses (category c / 51-75% glandular tissue). Current study was also evaluated with a Computer Aided Detection (CAD) system. There are benign masses in both breasts. There also are benign calcifications in both breasts. No significant masses, calcifications, or other findings are seen in either breast. There has been no significant interval change. IMPRESSION: BENIGN There is no mammographic evidence of malignancy. A 1 year screening mammogram is recommended. Based on the Tyrer Cuzick model (a risk assessment model) the patient's lifetime risk is 8.1% and her 10 year risk is 0.0%. According to the ACR, ACS, and NCCN guidelines, an annual breast MRI exam along with mammogram is recommended if the patient's lifetime risk is 20% or greater. This exam was interpreted at Station ID: [id number]. NOTE: For mammograms, a report in lay terms will be sent to the patient. Approximately 15% of breast malignancies will not be visualized mammographically. In the management of a palpable breast mass, a negative mammogram must not discourage biopsy of a clinically suspicious lesion. Electronically Signed By: Terrell izaguirre/xavier:08/17/2022 13:26:52 letter sent: Normal Exam ACR BI-RADS Category 2: Benign Finding(s) [id number]
== END ==
PROVIDERS: PCP Physician Assistant; Referring Provider Physician Assistant; Visit Provider Physician Assistant
DX: Z12.31 Encounter for screening mammogram for malignant neoplasm of breast (principal); Z80.3 Family history of malignant neoplasm of breast
CPT/HCPCS: 77063; 77067

== ENCOUNTER 2023-04-19 07:13 | Emergency (ER) | payer MEDICARE, SELFPAY ==
[2023-04-19] VITALS (11 sets, daily range): BP systolic 135–199; BP diastolic 65–92; PULSE 60–73; RESP 18; TEMP 36.7; O2SAT 91–96; BMI 34.4
--- NOTE | 2023-04-19 07:41 | DI.CT.S_ITS ---
PROCEDURE: CT ABDOMEN PELVIS W CON INDICATIONS: IV contrast only/left lower quadrant pain TECHNIQUE: After the administration of intravenous contrast, axial sections acquired from the lung bases to the pubic symphysis. Coronal and sagittal reformats were performed. For radiation dose reduction, the following was used: automated exposure control, adjustment of mA and/or kV according to patient size. COMPARISON: [facility], CT, CT ABDOMEN PELVIS W CON, 01/28/2021, 9:14. FINDINGS: Image quality: Diagnostic. Lower Chest: Linear atelectasis versus scarring in the right lower lobe. Heart is normal in size. Mild coronary artery calcifications. ABDOMEN: Liver: No solid mass. Gallbladder: Surgically absent. Biliary ducts: No biliary dilation. Pancreas: No ductal dilation. Spleen: Size is within normal limits. Adrenal Glands: No adrenal nodules. Kidneys and Ureters: No hydronephrosis. No solid mass. No complex renal cystic lesion which requires follow up. Stomach and Bowel: Normal colonic caliber, without significant wall thickening. Diverticulosis without evidence of acute diverticulitis. Probable adhesion of the transverse colon to the ventral abdominal wall is similar to prior. Peritoneum: No abnormal intraperitoneal fluid. No free air. Ventral Wall: No significant ventral hernia. Abdominal Nodes: No retroperitoneal or mesenteric adenopathy by size criteria. Vessels: Aorta and inferior vena cava are normal in size. Atherosclerotic vascular calcifications. PELVIS: Pelvic Organs: Hysterectomy. Pelvic floor laxity is redemonstrated. Bladder: No bladder wall thickening, accounting for underdistention. Pelvic Nodes: No enlarged lymph nodes. Miscellaneous: No inguinal hernias are seen. Bones: No aggressive osseous abnormality. Diffusely decreased osseous mineralization. Degenerative changes of the spine. IMPRESSION: 1. No acute findings within the abdomen or pelvis to explain patient's symptoms. 2. Diverticulosis without evidence of acute diverticulitis. Dictated by: Steve Devi M.D. on 04/19/2023 at 8:42 Approved by: Steve Devi M.D. on 04/19/2023 at 8:48
[2023-04-19] MEDS: ONDANSETRON 4 MG/2 ML INJ IV (07:57)
[2023-04-19 07:58] LABS: Add Manual Diff / Slide Review NO; Basophils Absolute Auto 0 /uL (0-100); Basophils Percent Auto 0.3 % (0-2); Eosinophils Absolute Auto 200 /uL (0-450); Hematocrit 38.4 % (36-46); Hemoglobin 13.2 g/dL (12.0-16.0); Lymphocytes Absolute Auto 1300 /uL (1100-4500); Lymphocytes Percent Auto 16.7 % (25-40); Mean Corpuscular HGB Conc 34.3 % (30-36); Mean Corpuscular Hemoglobin 28.8 PG (26-34); Monocytes Absolute Auto 500 /uL (0-900); Monocytes Percent Auto 6.1 % (3-14); Neutrophils Absolute Auto 6000 /uL (1500-7000); Neutrophils Percent Auto 74.9 % (50-75); Platelet Count 260 X10^3/uL (150-400); Red Blood Cell Count 4.57 X10^6/uL (4.0-5.2); Red Cell Distribution Width 14.5 % (11.6-14.8); White Blood Cell Count 8.1 X10^3/uL (4.5-11.0)
[2023-04-19] MEDS: MORPHINE 2 MG/ML INJ IV (07:58)
[2023-04-19] MEDS: SODIUM CHLORIDE 0.9% 1,000 ML 1000 ML IV (07:58)
--- NOTE | 2023-04-19 08:08 | ED.ABDPAIN ---
HPI - Abdominal Pain General Chief Complaint: Abdominal Pain Stated Complaint: diverticulitus on meds not helping Time Seen by Provider: 04/19/23 07:40 Source: patient Mode of arrival: Ambulatory History of Present Illness HPI narrative: Patient brought here by . Complaints of left lower quadrant pain and unable to tolerate Augmentin due to vomiting. Patient has history of diverticulitis with partial resection of the colon, years ago. Left lower quadrant pain started a few days ago. Patient was seen by primary care in the office and was started on Augmentin. Patient has no known drug allergies. Patient has had Cipro and Flagyl in the past. For treatment of diverticulitis. Patient states has had nausea and vomiting. Not able to drink or eat. No black or bloody stools. No fever chills. Related Data Previous Rx's Medication Instructions Recorded ciprofloxacin HCl 500 mg tablet 500 mg PO BID #20 tabs 01/28/21 metronidazole 500 mg tablet 500 mg PO Q8H #30 tabs 01/28/21 ondansetron 4 mg disintegrating 4 mg PO TID-QID PRN nausea and 01/28/21 tablet vomiting #10 tabs ondansetron 4 mg disintegrating 4 mg PO Q8H PRN nausea and 04/19/23 tablet vomiting #15 tabs tramadol 50 mg tablet 50 mg PO TID PRN pain #20 tabs 04/19/23 Allergies Allergy/AdvReac Type Severity Reaction Status Date / Time No Known Drug Allergies Allergy Verified 04/19/23 07:36 Review of Systems Review of Systems Narrative: GENERAL: negative chills, fatigue, malaise, fever, sweats. HEENT: negative sinus pain, ear pain, sore throat RESPIRATORY: negative dyspnea, cough CARDIOVASCULAR: negative chest pain, palpitations GASTROINTESTINAL: Positive nausea, vomiting, abdominal pain : negative dysuria, frequency, hematuria MUSCULOSKELETAL: negative muscle or bony pain SKIN: negative rash, skin lesions NEUROLOGIC: negative weakness, numbness ROS Unobtainable: All systems reviewed & are unremarkable except as noted in HPI and below Patient History Social History Smoking Status: Former smoker Smoking Status: Former smoker alcohol intake frequency: holidays/special occasions only Substance Use Type: does not use Exam Narrative Exam Narrative: GENERAL: in no distress, not toxic not dyspneic HEAD: Normocephalic. EYES: Pupils equal round ENT: Mucous membranes moist. NECK: Trachea midline. CARDIOVASCULAR: Regular rate and rhythm RESPIRATORY: Clear to auscultation. Breath sounds equal bilaterally. No wheezes, rales, or rhonchi. GASTROINTESTINAL: Abdomen soft, there is reproducible left lower quadrant tenderness. Patient describes as sharp pain. 5/10 at this time. It does not radiate. No peritoneal signs. Bowel sounds are present. No pain out of proportion to exam. EXTREMITIES: No gross deformities. NEURO: AOx4. SKIN: Warm and dry PSYCH: Not anxious, is cooperative Initial Vital Signs Initial Vital Signs: Vital Signs Pulse Rate 73 04/19/23 07:26 Pulse Oximetry 92 04/19/23 07:26 Oxygen Delivery Method Room Air 04/19/23 07:26 Course Orders Ordered: Discontinued Medications Sodium Chloride (Normal Saline 0.9%) 1,000 mls @ 1,000 mls/hr IV BOLUS ONE Stop: 04/19/23 08:39 Last Infusion: 04/19/23 09:12 Dose: Infused Documented By: Admin: 04/19/23 07:58 Dose: 1,000 mls/hr Documented By: CECILLE Morphine Sulfate (Morphine 2 Mg/Ml Inj) 2 mg IV NOW ONE Stop: 04/19/23 07:41 Last Admin: 04/19/23 07:58 Dose: 2 mg Documented By: CECILLE Morphine Sulfate (Morphine 4 Mg/Ml Inj) 4 mg IV NOW ONE Stop: 04/19/23 08:57 Last Admin: 04/19/23 09:32 Dose: 4 mg Documented By: CECILLE Ondansetron HCl (Ondansetron 4 Mg/2 Ml Inj) 4 mg IV NOW ONE Stop: 04/19/23 07:41 Last Admin: 04/19/23 07:57 Dose: 4 mg Documented By: CECILLE Vital Signs Vital signs: Vital Signs - 8 hr 04/19/23 07:26 04/19/23 07:27 04/19/23 07:27 Temperature Pulse Rate 73 72 Respiratory Rate Blood Pressure 198/90 H Pulse Oximetry 92 96 Oxygen Delivery Method Room Air 04/19/23 07:29 04/19/23 07:29 04/19/23 07:30 Temperature 98.1 F Pulse Rate 69 72 Respiratory Rate 18 Blood Pressure 198/88 H 198/90 H Pulse Oximetry 96 95 Oxygen Delivery Method Room Air 04/19/23 07:30 04/19/23 07:31 04/19/23 07:31 Temperature Pulse Rate 69 69 Respiratory Rate Blood Pressure 196/84 H Pulse Oximetry 95 96 Oxygen Delivery Method 04/19/23 07:50 04/19/23 07:50 04/19/23 08:00 Temperature Pulse Rate 69 66 Respiratory Rate Blood Pressure 136/71 Pulse Oximetry 94 93 Oxygen Delivery Method 04/19/23 08:00 04/19/23 08:15 04/19/23 08:15 Temperature Pulse Rate 60 Respiratory Rate Blood Pressure 135/92 H 167/71 H Pulse Oximetry 92 Oxygen Delivery Method 04/19/23 08:30 04/19/23 08:31 04/19/23 08:31 Temperature Pulse Rate 68 Respiratory Rate Blood Pressure 199/86 H Pulse Oximetry 91 92 Oxygen Delivery Method MDM - Abdominal Pain Lab Data 04/19/23 07:50 04/19/23 07:50 Labs: Lab Results 04/19/23 Range/Units 07:50 WBC 8.1 (4.5-11.0) X10^3/uL RBC 4.57 (4.0-5.2) X10^6/uL Hgb 13.2 (12.0-16.0) g/dL Hct 38.4 (36-46) % MCV 84.0 (80-100) fL MCH 28.8 (26-34) PG MCHC 34.3 (30-36) % RDW 14.5 (11.6-14.8) % Plt Count 260 (150-400) X10^3/uL Neut % (Auto) 74.9 (50-75) % Lymph % (Auto) 16.7 L (25-40) % [place] % (Auto) 6.1 (3-14) % Eos % (Auto) 2.0 (2-4) % Baso % (Auto) 0.3 (0-2) % Neut # (Auto) 6000 (9808-6293) /uL Lymph # (Auto) 1300 (3869-8083) /uL [place] # (Auto) 500 (0-900) /uL Eos # (Auto) 200 (0-450) /uL Baso # (Auto) 0 (0-100) /uL Sodium 137 (137-145) mmol/L Potassium 3.6 (3.4-5.1) mmol/L Chloride 103 (98-107) mmol/L Carbon Dioxide 29 (22-32) mmol/L BUN 20 H (7-17) mg/dL Creatinine 0.74 (0.52-1.04) mg/dL Estimated GFR > 60 (>60) mL/min BUN/Creatinine Ratio 27.0 H (6-22) Glucose 141 H (80-110) mg/dL Calcium 9.7 (8.4-10.2) mg/dL Total Bilirubin 0.7 (0.2-1.3) mg/dL AST 26 (14-36) IU/L ALT 19 (<35) IU/L Alkaline Phosphatase 100 (38-126) U/L Total Protein 7.1 (6.3-8.2) g/dL Albumin 4.0 (3.5-5.0) g/dL Globulin 3.1 (1.7-4.1) g/dL Albumin/Globulin Ratio 1.3 (1.0-2.8) Point of care testing: Urine Dip Bedside Urine Glucose Negative Bedside Urine Bilirubin - Negative Bedside Urine Ketone - Negative Urine Specific [place] 1.010 Bedside Urine Occult Blood - Negative Bedside Urine pH 6.0 Bedside Urine Protein - Negative Bedside Urine Urobilinogen - Negative Bedside Urine Nitrite - Negative Bedside Urine Leukocytes - Negative Esterase Imaging Data CT scan - abdomen/pelvis: Radiologist's Impression: [place] [address] CT Scan Report Signed Patient: Shila Flores MR#: [id number] : 1945 Acct:[id number] Age/Sex: 77 / F Date of Service: 04/19/23 Loc: ED Accession Number: [id number] Procedure: CT abdomen pelvis w con Ordering Provider: Alfred Wang MD PROCEDURE: CT ABDOMEN PELVIS W CON INDICATIONS: IV contrast only/left lower quadrant pain TECHNIQUE: After the administration of intravenous contrast, axial sections acquired from the lung bases to the pubic symphysis. Coronal and sagittal reformats were performed. For radiation dose reduction, the following was used: automated exposure control, adjustment of mA and/or kV according to patient size. COMPARISON: [facility], CT, CT ABDOMEN PELVIS W CON, 01/28/2021, 9:14. FINDINGS: Image quality: Diagnostic. Lower Chest: Linear atelectasis versus scarring in the right lower lobe. Heart is normal in size. Mild coronary artery calcifications. ABDOMEN: Liver: No solid mass. Gallbladder: Surgically absent. Biliary ducts: No biliary dilation. Pancreas: No ductal dilation. Spleen: Size is within normal limits. Adrenal Glands: No adrenal nodules. Kidneys and Ureters: No hydronephrosis. No solid mass. No complex renal cystic lesion which requires follow up. Stomach and Bowel: Normal colonic caliber, without significant wall thickening. Diverticulosis without evidence of acute diverticulitis. Probable adhesion of the transverse colon to the ventral abdominal wall is similar to prior. Peritoneum: No abnormal intraperitoneal fluid. No free air. Ventral Wall: No significant ventral hernia. Abdominal Nodes: No retroperitoneal or mesenteric adenopathy by size criteria. Vessels: Aorta and inferior vena cava are normal in size. Atherosclerotic vascular calcifications. PELVIS: Pelvic Organs: Hysterectomy. Pelvic floor laxity is redemonstrated. Bladder: No bladder wall thickening, accounting for underdistention. Pelvic Nodes: No enlarged lymph nodes. Miscellaneous: No inguinal hernias are seen. Bones: No aggressive osseous abnormality. Diffusely decreased osseous mineralization. Degenerative changes of the spine. IMPRESSION: 1. No acute findings within the abdomen or pelvis to explain patient's symptoms. 2. Diverticulosis without evidence of acute diverticulitis. Dictated by: Steve Devi M.D. on 04/19/2023 at 8:42 Approved by: Steve Devi M.D. on 04/19/2023 at 8:48 [facility] Narrative Medical decision making narrative: Patient brought here by . Complaints of left lower quadrant pain and unable to tolerate Augmentin due to vomiting. Patient has history of diverticulitis with partial resection of the colon, years ago. Left lower quadrant pain started a few days ago. Patient was seen by primary care in the office and was started on Augmentin. Patient has no known drug allergies. Patient has had Cipro and Flagyl in the past. For treatment of diverticulitis. Patient states has had nausea and vomiting. Not able to drink or eat. No black or bloody stools. No fever chills. After history and exam CBC CMP CT abdomen pelvis morphine Zofran normal saline urinalysis [facility] CC: Left lower quadrant pain Complicating co-morbidities: History of diverticulitis Data collected from: Patient Medical records reviewed: No recent visit for this complaint here Differential considered: Includes but not limited to diverticulitis bowel obstruction colitis perforation Exam documented above, pertinent findings include: Left lower quadrant tenderness Lab Test results independently reviewed as above. Pertinent findings: WBC 8.1 hemoglobin 13.2 sodium 137 BUN 20 AST 26 ALT 19 Urinalysis negative leukocytes negative nitrite Imaging studies independently reviewed: CT abdomen pelvis no acute findings Consultations: None indicated at this time Treatments: Morphine Zofran normal saline Re-evaluations: 8:57 a.m.. Reviewed with patient and results. Pain is a little bit better. I will order 4 mg morphine. Awaiting for urinalysis, at this time exam and laboratory studies imaging are reassuring. Does not need antibiotics for diverticulitis. Reviewed with him we have ruled out other items which is reassuring and sometimes not able to find source abdominal pain. It would be appropriate for follow up with primary care as results so far are reassuring. Patient has only had 2 tablets at the most of Augmentin. I do not believe this is enough to treat fully for diverticulitis and likely did not have diverticulitis on onset with symptoms a few days ago. Discussion: Appropriate for discharge home. Exam and laboratory studies imaging are reassuring. I do not believe the amount of Augmentin only 2 tablets would suffice for treatment for diverticulitis. I do not believe she had diverticulitis to begin with. Exam is reassuring normal WBC and CT imaging is reassuring. Return precautions reviewed with patient and . Short course of pain medication appropriate. They desire discharge home Diagnosis: Abdominal pain Discharge Plan Departure Patient Disposition: Home Clinical Impression: Abdominal pain Qualifiers: Abdominal location: left lower quadrant Qualified Code(s): R10.32 - Left lower quadrant pain Instructions: DI for Abdominal Pain-Adult Activity Restrictions/Additional Instructions: See family doctor within a week for re-evaluation. Return immediately if worse if any questions or concerns. At this time her laboratory studies and CT scan imaging is reassuring. No surgical needs or infectious process seen at this time. No antibiotics are indicated. You may stop taking the Augmentin. Keep well hydrated. No driving operating machinery today or when taking prescribed pain medication. Prescriptions: New ondansetron 4 mg tablet,disintegrating 4 mg PO Q8H PRN (Reason: nausea and vomiting) Qty: 15 0RF tramadol 50 mg tablet 50 mg PO TID PRN (Reason: pain) Qty: 20 0RF No Action ciprofloxacin HCl 500 mg tablet 500 mg PO BID Qty: 20 0RF metronidazole 500 mg tablet 500 mg PO Q8H Qty: 30 0RF ondansetron 4 mg tablet,disintegrating 4 mg PO TID-QID PRN (Reason: nausea and vomiting) Qty: 10 0RF Referrals: Lynette Ruffin PA-C [Primary Care Provider] - Stand Alone Forms: Patient Portal/API
[2023-04-19 08:11] LABS: Alanine Aminotransferase 19 IU/L (<35); Albumin Globulin Ratio 1.3 (1.0-2.8); Alkaline Phosphatase 100 U/L (38-126); Aspartate Aminotransferase 26 IU/L (14-36); Bilirubin Total 0.7 mg/dL (0.2-1.3); Blood Urea Nitrogen 20 mg/dL (7-17); Calcium 9.7 mg/dL (8.4-10.2); Carbon Dioxide 29 mmol/L (22-32); Chloride 103 mmol/L (98-107); Estimated Glomerular Filt Rate > 60 mL/min (>60); Globulin 3.1 g/dL (1.7-4.1); Glucose 141 mg/dL (80-110); HEMOLYSIS < 15 (0-50); Potassium 3.6 mmol/L (3.4-5.1); Sodium 137 mmol/L (137-145); Total Protein 7.1 g/dL (6.3-8.2)
[2023-04-19] MEDS: MORPHINE 4 MG/ML INJ IV (09:32)
== END 2023-04-19 10:36 | disposition home or self-care (01) ==
PROVIDERS: Emergency Provider Emergency Medicine; PCP Physician Assistant
DX: R10.32 Left lower quadrant pain (principal)
CPT/HCPCS: 36415; 74177; 80053; 81003; 85025; 96361; 96374; 96375; 96376; 99284; J2270; J2405; Q9967

== ENCOUNTER → 2023-06-01 11:23 | Outpatient (CLI) | payer MEDICARE, SELFPAY ==
[2023-06-01 12:23] LABS: Add Manual Diff / Slide Review NO; Basophils Absolute Auto 0 /uL (0-100); Basophils Percent Auto 0.3 % (0-2); Eosinophils Absolute Auto 200 /uL (0-450); Eosinophils Percent Auto 2.6 % (2-4); Hematocrit 39.4 % (36-46); Hemoglobin 13.3 g/dL (12.0-16.0); Lymphocytes Absolute Auto 1600 /uL (1100-4500); Lymphocytes Percent Auto 18.4 % (25-40); Mean Corpuscular HGB Conc 33.7 % (30-36); Mean Corpuscular Hemoglobin 28.9 PG (26-34); Mean Corpuscular Volume 85.8 fL (80-100); Monocytes Absolute Auto 500 /uL (0-900); Monocytes Percent Auto 5.4 % (3-14); Neutrophils Absolute Auto 6200 /uL (1500-7000); Neutrophils Percent Auto 73.3 % (50-75); Platelet Count 255 X10^3/uL (150-400); Red Cell Distribution Width 14.8 % (11.6-14.8); White Blood Cell Count 8.4 X10^3/uL (4.5-11.0)
[2023-06-01 12:55] LABS: Hemoglobin A1C% w Est Avg Glu 6.9 % (4.0-6.0)
== END ==
LOC: RESP 11:25
PROVIDERS: PCP Physician Assistant; Referring Provider Orthopaedic Surgery Orthopaedic Surgery of the Spine; Visit Provider Orthopaedic Surgery Orthopaedic Surgery of the Spine
DX: Z01.818 Encounter for other preprocedural examination (principal); R73.9 Hyperglycemia, unspecified; Z01.812 Encounter for preprocedural laboratory examination
CPT/HCPCS: 36415; 83036; 85025; 93005

== ENCOUNTER 2023-07-02 06:11 | Day surgery (SDC) | payer MEDICARE, SELFPAY ==
[2023-06-25 11:57] VITALS: BMI 32.9
[2023-07-02] VITALS (11 sets, daily range): BP systolic 98–163; BP diastolic 53–76; PULSE 65–88; RESP 12–16; TEMP 36.3–36.6; O2SAT 92–98; BMI 32.9
[2023-07-02] MEDS: LACTATED RINGERS 1,000 ML 42 ML IV ×2 (07:13→08:39)
[2023-07-02] MEDS: ACETAMINOPHEN 325 MG TABLET 975 MG PO (07:20)
--- NOTE | 2023-07-02 07:38 | PM.PREOP ---
Pre-operative Note Interval Note History & Physical reviewed/Exam performed by Physician: Yes Changes to H&P: No
[2023-07-02] MEDS: CEFAZOLIN 2 GM/100 ML PREMIX 100 ML IV (07:53)
--- NOTE | 2023-07-02 08:10 | SUR.OPER ---
Prone on spine table, head in foam head support, padded chest and pelvic supports, gel pad at knees, lower legs supported by pillows; nipples, genitalia and toes free of pressure, arms secured on foam padded arm boards at <90 degrees abduction. Tape over blanket at thigh secured to table.
[2023-07-02] MEDS: BUPIVACAINE 0.25% (PF) 30 ML, EPINEPHrine 0.15 MG INJ (08:26)
--- NOTE | 2023-07-02 08:49 | DI.RAD.S_ITS ---
PROCEDURE: XR LUMBAR SPINE 2-3V INDICATIONS: L2-3 MICRODISCECTOMY TECHNIQUE: Fluoroscopic guidance utilized for a L2-3 micro discectomy COMPARISON: None. FINDINGS: Fluoroscopic images submitted for a L2-3 micro discectomy. Please see operative note for further discussion. IMPRESSION: Fluoroscopic guidance. Dictated by: Fritz Bello M.D. on 07/02/2023 at 9:27 Approved by: Fritz Bello M.D. on 07/02/2023 at 9:27
--- NOTE | 2023-07-02 09:22 | P.OP_ITS ---
Operative Date/Time/Diagnoses Date of procedure: 07/02/23 Time of procedure: 07:40 Pre-op diagnosis: 1. L2-3 disc herniation 2. Lumbar radiculopathy Post-op diagnosis: same Procedure & Clinicians Procedure: 1. L2-3 left microdiscectomy 2. Utilization of microsurgical technique and operating microscope Same procedure as scheduled: Yes Indications: Patient has been having chronic back pain and worsening lumbar radiculopathy. Patient was found have a large L2-3 disc extrusion on the left side migrating proximally correlating with patient's symptoms of left-sided radiculopathy. Patient failed multiple conservative management with worsening pain weakness and numbness in her lower extremity. Patient has been having difficulty performing activity of daily living. After discussing risks benefits of treatment options, patient elected proceed with surgery. Surgeon: Temo Escalera [employer] Valuer: Jaja Duffy Click Yes if Unassisted: No Anesthesia Type: General Operative Notes Closure Type: primary Specimen(s): none sent Estimated Blood Loss (mL): 10 Blood products transfused: none Procedure in detail: Patient was seen in the preoperative area. Risks and benefits of the surgery was discussed with the patient. Informed consent was obtained from the patient and placed in the chart. Surgical site was marked. Patient was taken to the operative room. General anesthesia was administered. Prophylactic antibiotic was given to the patient less than 30 min before the incision was made. Patient was placed into a prone position on the Sher table. Patient's back was then prepped and draped in the sterile fashion. Time-out was performed at this time. Using AP and lateral C-arm imaging the interval between L2-3 was identified and marked on patient's back. A 1 inch incision 1 in from midline was made on the left side. The fascia was incised in line with skin incision. Globus MARS retractors was placed inside the incision and docked onto the L2 lamina. Using microsurgical technique and operating microscope, a L2 laminotomy was performed using a Kerrison rongeur. Liagamentum flavum was resected at the site of the laminotomy. The disc space at L2-3 was identified. Microdiscectomy was performed by incising the annulus with #11 blade. Microcurettes and pituitary was used to removed herniated disc fragments of disc from the epidural space. Patient's disc fragment migrated proximally and was causing significant neural foraminal lateral recess stenosis. The stenosis was fully decompressed after the diskectomy was completed. After the microdiskectomy was completed, the area medial lateral superior and inferior to the area of the microdiskectomy was inspected and explored using a micro curette. No other impinging structure was identified. The wound was then irrigated with sterile normal saline. 40 mg Depo-Medrol was placed into the epidural space. The deep fascia was closed with 1-0 Vicryl. The subcutaneous tissue was closed with 2-0 Vicryl. The skin was closed with 4-0 Monocryl. Patient tolerated the procedure well. There were no complications. Patient was transferred recovery room in stable condition. The Operation could not have been safely performed without compromising the technical result or length of the procedure, without the assistance of a skilled surgical nurse practitioner. The surgical nurse practitioner was medically necessary for proper positioning, retraction and manipulation of instruments, proper exposure, surgical preparation, and manipulation of tissue. Complications: none
--- NOTE | 2023-07-02 11:23 | SUR.PHASEII ---
Incentive spirometer given to patient and reviewed how to use with family
== END 2023-07-02 11:23 | disposition home or self-care (01) ==
PROVIDERS: PCP Physician Assistant; Referring Provider Physical Medicine & Rehabilitation; Visit Provider Orthopaedic Surgery Orthopaedic Surgery of the Spine
PROC: (CPT 63030; principal; 2023-07-02 07:45)
DX: M51.26 Other intervertebral disc displacement, lumbar region (principal); M54.16 Radiculopathy, lumbar region
CPT/HCPCS: 63030; 72100; 76000; J0171; J0690; J1100; J2405; J2704; J2919; J3010